=== PATIENT | female | born 1950 ===

== ENCOUNTER 2019-10-24 15:30 | Outpatient (RCR) | payer MEDICARE, OTHER, SELFPAY | END 2019-11-19 00:01 | LOC: GPT 15:30 | DX: Z98.1 Arthrodesis status (principal) | CPT/HCPCS: 97110 ×7; 97112; 97116 ×4; 97140; 97162; 97530; 97164 ==

== ENCOUNTER 2019-11-20 06:00 | Outpatient (RCR) | payer MEDICARE, OTHER, SELFPAY | END 2019-12-20 23:59 | disposition home or self-care (01) | LOC: GPT 06:00 | PROVIDERS: Referring Provider Nurse Practitioner Family; Visit Provider Nurse Practitioner Family | DX: Z98.1 Arthrodesis status (principal); M54.5 Low back pain; M19.90 Unspecified osteoarthritis, unspecified site | CPT/HCPCS: 97110; 97112; 97116; 97164; 97530 ==

== ENCOUNTER 2019-12-23 06:00 | Outpatient (RCR) | payer MEDICARE, OTHER, SELFPAY | END 2020-01-18 23:59 | disposition home or self-care (01) | LOC: GPT 06:00 | PROVIDERS: Referring Provider Nurse Practitioner Family; Visit Provider Nurse Practitioner Family | DX: Z98.1 Arthrodesis status (principal) | CPT/HCPCS: 97110; 97112; 97140; 97164; 97530 ==

== ENCOUNTER 2020-01-19 06:00 | Outpatient (RCR) | payer MEDICARE, OTHER, SELFPAY | END 2020-02-18 23:59 | disposition home or self-care (01) | LOC: GPT 06:00 | PROVIDERS: Referring Provider Nurse Practitioner Family; Visit Provider Nurse Practitioner Family | DX: Z98.1 Arthrodesis status (principal); M54.5 Low back pain; M13.80 Other specified arthritis, unspecified site | CPT/HCPCS: 97110; 97112; 97140 ==

== ENCOUNTER 2020-08-06 15:04 | Outpatient (CLI) | payer MEDICARE, OTHER, SELFPAY ==
[2020-08-06 16:39] LABS: C Reactive Protein 4.1 mg/L (0.0-4.9); Lactate Dehydrogenase 396 U/L (135-214)
[2020-08-06 17:01] LABS: Ferritin 1495 ng/mL (15-150)
== END 2020-08-06 15:05 | disposition home or self-care (01) ==
LOC: LAB 15:07
PROVIDERS: Visit Provider Student in an Organized Health Care Education/Training Program
DX: U07.1 COVID-19 (principal); I10 Essential (primary) hypertension
CPT/HCPCS: 82728; 83615; 85378; 86140

== ENCOUNTER → 2020-09-25 12:28 | Outpatient (BNVA) | payer MEDICARE, OTHER, SELFPAY | PROVIDERS: Visit Provider Internal Medicine | DX: R30.0 Dysuria (principal) | CPT/HCPCS: 81000 ==